=== PATIENT | female | born 1945 | race Hispanic/Latino ===

== ENCOUNTER 2021-04-12 06:40 | Observation (INO) | payer MEDICARE ==
[2021-04-11 08:59] LABS: BASOPHILS # (AUTO) 0.1 (0.0-0.1); BASOPHILS % 0.6 % (0.0-1.0); EOSINOPHILS # (AUTO) 0.2 (0.0-0.4); EOSINOPHILS % 2.3 % (0.0-6.0); HEMATOCRIT 39.8 % (34.2-44.1); LYMPHOCYTES # (AUTO) 2.9 (1.0-3.2); LYMPHOCYTES % 37.5 % (18.0-39.1); MEAN CORPUSCULAR HGB CONC 32.7 g/dL (31-35); MONOCYTES # (AUTO) 0.8 (0.2-0.8); MONOCYTES % 9.8 % (4.4-11.3); NEUTROPHILS # (AUTO) 3.9 (2.1-6.9); NEUTROPHILS % 49.5 % (38.7-80.0); PLATELET COUNT 228 x10e3/uL (140-360); RED BLOOD COUNT 4.06 x10e6/uL (3.6-5.1); RED CELL DISTRIBUTION WIDTH 12.6 % (11.7-14.4)
[2021-04-11 15:57] LABS: ALBUMIN 3.7 g/dL (3.5-5.0); ANION GAP 12.2 mmol/L (8-16); CREATININE, SERUM 0.88 mg/dL (0.57-1.11); POTASSIUM 4.2 mmol/L (3.5-5.1)
[~2021-04-12] VITALS: Ht 152.4 cm; Wt 82.1 kg
[~2021-04-12 06:40] MED LIST: ALENDRONATE SOD70 MG PO; AMLODIPINE BESYL5 MG PO; CELEBREX200 MG PO; HYDROCHLOROTH12.5 MG PO; HYDROCLOROTHIAZIDE; LISINOPRIL10 MG PO; Z AMLODIPINE ATO; Z ZESTRIL PO; Z.0.LISINOPRIL40 MG PO; amlodipine
[2021-04-12] MEDS ORDERED: SODIUM CHLORIDE 0.9% 50ML 100 ML ONE (07:32)
[2021-04-12] MEDS ORDERED: ESTROGENS CONJUGATED VAGINAL CR 45 GM TUBE PV ONE (10:06)
[2021-04-12] MEDS ORDERED: BUPIVACAINE 0.25% 30ML SDV ONE (10:06)
[2021-04-12] MEDS ORDERED: LIDOCAINE 1% W/EPINEPHRINE 20 ML VIAL ONE ×2 (10:06→10:45)
[2021-04-12] MEDS ORDERED: FENTANYL CITRATE/PF 100MCG/2 ML INJ ONE ×2 (11:31→13:28)
[2021-04-12] MEDS ORDERED: HYDROMORPHONE 1MG/1ML INJ ONE (11:38)
[2021-04-12] MEDS ORDERED: MORPHINE SULFATE INJ 4 MG/ML INJ 1ML ONE (11:55)
[2021-04-12 12:50] VITALS: BP 136/77
[2021-04-12 12:51] VITALS: BP 136/77
[2021-04-12 12:57] VITALS: BP 136/77
[2021-04-12] MEDS ORDERED: POVIDONE IODINE 0.05% 0.05 % ML PO ONE (13:32)
[2021-04-12] MEDS ORDERED: ONDANSETRON HCL INJ 2MG/ML 2ML 2 MG/ML VIAL ONE (13:32)
[2021-04-12] MEDS ORDERED: SEVOFLURANE INHAL SOLN 250 ML PEN BTL ONE (13:32)
[2021-04-12] MEDS ORDERED: DEXAMETHASONE SOD PHOS INJ 4 MG/ML SDV ONE (13:32)
[2021-04-12] MEDS ORDERED: EPHEDRINE SULFATE INJ 50 MG/ML VIAL ONE (13:32)
[2021-04-12] MEDS ORDERED: PROPOFOL IV EMULSION 10 MG/ML 20 ML VIAL ONE (13:32)
[2021-04-12] MEDS ORDERED: LIDOCAINE HCL 2% LOCAL INJ 5 ML SDV VIAL INJ ONE (13:32)
[2021-04-12 16:29] VITALS: BP 112/60
== END 2021-04-12 17:48 | disposition home or self-care (01) ==
LOC: OR 06:40 → PACU V 10:02 → MED/SURG 12:20
PROVIDERS: ADMIT Obstetrics & Gynecology; ATTEND Obstetrics & Gynecology
DX: N81.89 Other female genital prolapse (principal); N81.10 Cystocele, unspecified; N81.6 Rectocele; N32.81 Overactive bladder; I10 Essential (primary) hypertension; F41.9 Anxiety disorder, unspecified; Z91.048 Other nonmedicinal substance allergy status; Z82.49 Family history of ischemic heart disease and other diseases of the circulatory system; Z01.810 Encounter for preprocedural cardiovascular examination; Z01.812 Encounter for preprocedural laboratory examination; Z01.818 Encounter for other preprocedural examination; Z20.822 Contact with and (suspected) exposure to COVID-19
CPT/HCPCS: 36415; 57265; 57282; 71046; 80053; 85025; 93005; C1758; G0378; J0690; J1100; J1170; J2001; J2270; J2405; J2704; J3010; U0002